=== PATIENT | male | born 1970 | race Caucasian/White ===

== ENCOUNTER 2016-06-25 12:20 | Emergency (ER) | payer MEDICAID ==
[~2016-06-25] VITALS: Ht 167.6 cm; Wt 89.1 kg
[2016-06-25 12:25] VITALS: Ht 167.6 cm; Wt 89.1 kg
[2016-06-25] MEDS ORDERED: LIDOCAINE/MYLANTA 40 ML BTL PO STA (14:13)
[2016-06-25] MEDS ORDERED: BELLADONNA/PHENOBARBITAL TAB PO STA (14:13)
[2016-06-25] MEDS ORDERED: FAMOTIDINE 20 MG INJ IV STA (14:13)
[2016-06-25 14:35] LABS: ADD SCAN DIFF NO
[2016-06-25 14:40] LABS: BASOPHIL # 0.1 10^3/ul (0.0-0.1); BASOPHILS % 0.9 % (0.0-2.0); EOSINOPHILS # 0.1 10^3/ul (0.0-0.5); EOSINOPHILS % 1.5 % (0.0-7.0); HEMATOCRIT 47.3 % (42.0-52.0); HEMOGLOBIN 15.7 g/dl (14.0-18.0); LYMPHOCYTES # 2.1 10^3/ul (0.8-2.9); LYMPHOCYTES % 28.6 % (15.0-51.0); MEAN CORPUSCULAR HEMOGLOBIN 28.9 pg (29.0-33.0); MEAN CORPUSCULAR HGB CONC 33.2 g/dl (32.0-37.0); MEAN CORPUSCULAR VOLUME 87.1 fl (82.0-101.0); MEAN PLATELET VOLUME 10.1 fl (7.4-10.4); MONOCYTE # 0.5 10^3/ul (0.3-0.9); MONOCYTES % 6.5 % (0.0-11.0); NEUTROPHIL # 4.7 10^3/ul (1.6-7.5); NEUTROPHILS % 62.1 % (39.0-77.0); PLATELET COUNT 272 10^3/UL (140-415); RED BLOOD COUNT 5.43 10^6/ul (4.70-6.10); RED CELL DISTRIBUTION WIDTH 13.3 % (11.5-14.5); WHITE BLOOD COUNT 7.5 10^3/ul (4.8-10.8)
--- NOTE | 2016-06-25 14:47 | ERD ---
ER Documentation Chief Complaint Date/Time DATE: 06/25/16 TIME: 14:46 Chief Complaint AP X 3 DAYS HPI This is a 45-year-old male presents to the ER with mid abdominal pain for the last 3 days. Patient states that abdominal pain is intermittent and is severe at times. Patient denies any nausea vomiting or diarrhea. He denies any fevers or chills. Patient states that pain radiates down to his testicles. Patient denies any rectal pain. He denies any urinary area. He denies any penile discharge. Patient tried taking ibuprofen for pain however it did not work. ROS 12 point review of systems was done, all negative except per HPI. Medications Home Meds Active Scripts Dicyclomine Hcl* (Bentyl*) 10 Mg Capsule, 10 MG PO QID for 7 Days, CAP Prov:MIGUEL,ALISA C 06/25/16 Famotidine* (Pepcid*) 20 Mg Tablet, 20 MG PO BID for 5 Days, TAB Prov:MIGUEL,ALISA C 06/25/16 Reported Medications [None] No Conflict Check 02/26/13 Allergies Allergies: Coded Allergies: No Known Drug Allergies (Verified Allergy, Unknown, 06/25/16) PMhx/Soc Medical and Surgical Hx: pt denies Surgical Hx History of Surgery: No Hx Cardiac Disorders: Yes (PALPITATION 10 YEAR AGO) Hx Alcohol Use: No Hx Substance Use: No Hx Tobacco Use: No Smoking Status: Never smoker Physical Exam Vitals Vital Signs Date Time Temp Pulse Resp B/P Pulse Ox O2 Delivery O2 Flow Rate FiO2 06/25/16 12:25 98.1 90 18 164/90 99 Physical Exam GENERAL: The patient is well developed and appropriate for usual state of health , in no apparent distress. HEENT: Atraumatic. CHEST: Clear to auscultation bilaterally. There are no rales, wheezes or rhonchi. HEART: Regular rate and rhythm. No murmurs, clicks, rubs or gallops. ABDOMEN: Soft, nontender and nondistended. Good bowel sounds. No rebound or guarding. No gross peritonitis. No gross organomegaly or masses. No Lemus sign or McBurney point tenderness. BACK: No midline or flank tenderness. : no testicular pain or swelling NEURO: Alert and oriented. Result Diagram: 06/25/16 1420 06/25/16 1420 Results 24 hrs Laboratory Tests Test 06/25/16 14:20 White Blood Count 7.510^3/ul Red Blood Count 5.4310^6/ul Hemoglobin 15.7g/dl Hematocrit 47.3% Mean Corpuscular Volume 87.1fl Mean Corpuscular Hemoglobin 28.9pg Mean Corpuscular Hemoglobin Concent 33.2g/dl Red Cell Distribution Width 13.3% Platelet Count 45927^3/UL Mean Platelet Volume 10.1fl Neutrophils % 62.1% Lymphocytes % 28.6% Monocytes % 6.5% Eosinophils % 1.5% Basophils % 0.9% Nucleated Red Blood Cells % 0.0/100WBC Neutrophils # 4.710^3/ul Lymphocytes # 2.110^3/ul Monocytes # 0.510^3/ul Eosinophils # 0.110^3/ul Basophils # 0.110^3/ul Nucleated Red Blood Cells # 0.010^3/ul Urine Color LT. YELLOW Urine Clarity CLEAR Urine pH 6.0 Urine Specific [place] 1.020 Urine Ketones NEGATIVE Urine Nitrite NEGATIVE Urine Bilirubin NEGATIVE Urine Urobilinogen 0.2 E.U./dL Urine Leukocyte Esterase NEGATIVE Urine Hemoglobin NEGATIVE Urine Glucose NEGATIVE% Urine Total Protein NEGATIVE Sodium Level 141mmol/L Potassium Level 4.0mmol/L Chloride Level 105mmol/L Carbon Dioxide Level 26mmol/L Anion Gap 14 Blood Urea Nitrogen 14mg/dl Creatinine 0.84mg/dl Glucose Level 133mg/dl Calcium Level 9.5mg/dl Total Bilirubin 0.3mg/dl Direct Bilirubin 0.00mg/dl Indirect Bilirubin 0.3mg/dl Aspartate Amino Transf (AST/SGOT) 41IU/L Alanine Aminotransferase (ALT/SGPT) 53IU/L Alkaline Phosphatase 103IU/L Total Protein 8.0g/dl Albumin 4.4g/dl Globulin 3.60g/dl Albumin/Globulin Ratio 1.22 Lipase 76U/L Current Medications Medications (Trade) Dose Ordered Sig/Eric Route PRN Reason Start Time Stop Time Status Last Admin Dose Admin Famotidine (Pepcid Iv) 20 mg ONCE STAT IV 06/25/16 14:13 06/25/16 14:14 DC 06/25/16 14:26 Miscellaneous Medication (Gi Cocktail (2)) 40 ml ONCE STAT PO 06/25/16 14:13 06/25/16 14:14 DC 06/25/16 14:25 Belladonna/ Phenobarbital () 2 tab ONCE STAT PO 06/25/16 14:13 06/25/16 14:14 DC 06/25/16 14:25 Procedures/MDM This is a 45-year-old male presents to the ER with generalized abdominal pain for the last 3 days. Differential diagnosis includes but is not limited to GERD , gastritis, cholelithiasis, obstructive stone, nephrolithiasis, appendicitis, diverticulitis,, intra-abdominal abscess, testicular torsion, epididymitis. At this time etiology of abdominal pain is unknown however there is no evidence of acute abdomen. Patient will be sent home with Bentyl and with famotidine. Patient's abdominal exam is benign. He is afebrile and well-appearing. Patient is to follow-up with her primary care doctor within 1-2 days return to ER sooner if symptoms worsen. Medical decision making was shared with the patient he understands and agrees with plan. Departure Diagnosis: Primary Impression: Abdominal pain Condition: Stable ALISA RIVERA Jun 25, 2016 14:47
[2016-06-25 14:49] LABS: ADD UMIC NO; URINE BILIRUBIN (Dip) NEGATIVE (NEGATIVE); URINE BLOOD (Dip) NEGATIVE (NEGATIVE); URINE COLOR LT. YELLOW (YELLOW); URINE GLUCOSE (Dip) NEGATIVE (NEGATIVE); URINE KETONES (Dip) NEGATIVE (NEGATIVE); URINE LEUKOCYTE ESTERASE (Dip) NEGATIVE (NEGATIVE); URINE NITRITE (Dip) NEGATIVE (NEGATIVE); URINE TOTAL PROTEIN (Dip) NEGATIVE (NEGATIVE); URINE UROBILINOGEN (Dip) 0.2 E.U./dL (0.1-1.0)
[2016-06-25 14:56] LABS: ALBUMIN 4.4 g/dl (3.3-4.9); ALBUMIN/GLOBULIN RATIO 1.22; BILIRUBIN,INDIRECT 0.3 mg/dl (0-1.1); BILIRUBIN,TOTAL 0.3 mg/dl (0.2-1.3); CALCIUM 9.5 mg/dl (8.4-10.2); CREATININE 0.84 mg/dl (0.61-1.24)
--- NOTE | 2016-06-25 15:03 | RADRPT ---
PROCEDURE: Scrotal ultrasound CLINICAL INDICATION: Bilateral testicular pain. TECHNIQUE: Scrotal ultrasound was performed with sagittal and transverse views. Choe scale and co mine imaging was performed. Images were reviewed on high resolution PACS monitors. COMPARISON: None available FINDINGS: The right testicle measures 4.7 x 2.5 x 3.8 cm. The left testicle measures 4.3 x 2.3 x 3.4 cm. There is normal size and echogenicity and morphology bilaterally. There is normal blood flow seen bilaterally. The epididymi are normal. No hydrocele is identified. There is no evidence for varicocele. The soft tissues are unremarkable. No mass or cyst or other abnormality is seen. IMPRESSION: 1. Unremarkable scrotal ultrasound. 2. Symmetrically normal testes and epididymi. RPTAT: [facility] Physician Lucho Date Time Electronically viewed and signed by Physician Lucho on 06/25/2016 15:02 MARIA INES/
--- NOTE | 2016-06-25 15:36 | RADRPT ---
PROCEDURE: CT Abdomen and Pelvis without contrast. CLINICAL INDICATION: Abdominal pain TECHNIQUE: CT of the abdomen and pelvis was performed on a multi-detector scanner without IV contr ast. Coronal and sagittal images were reformatted from the axial data set. One or more of the foll owing dose reduction techniques were used: automated exposure control, adjustment of the mA and/or kV according to patient size, use of iterative reconstruction technique. CTDI = 22.63 mGy. DLP = 14 36.91 mGy-cm. COMPARISON: Ultrasound, 06/25/2016 FINDINGS: CT abdomen: The lung bases are clear. The heart size is normal, without pericardial effusion. Hepatic fatty in filtration is noted, without evidence of focal hepatic mass. Gallbladder, biliary tree, pancreas, s pleen and adrenal glands are unremarkable. Small bilateral nonobstructive renal calculi are noted, without ureterolithiasis or obstructive uropathy. The stomach is grossly unremarkable. The aorta is of normal caliber. There is no retroperitoneal lymphadenopathy. The ovidio hepatis reg ion is clear. CT pelvis: No bowel obstruction, free intraperitoneal air or abscess is identified. There is no diverticulosis , diverticulitis or colitis. The appendix is well visualized and normal. Urinary bladder is grossl y unremarkable. No pelvic mass, free fluid or lymphadenopathy is identified. The surrounding osseous structures are remarkable for degenerative spondylosis of the spine. No ost eolytic or osteoblastic lesion is detected. IMPRESSION: 1. Hepatic steatosis is noted. 2. Small bilateral nonobstructive renal calculi are seen, without ureterolithiasis or obstructive u ropathy. 3. No mass, lymphadenopathy, or focal acute inflammatory process is identified. RPTAT: PP .Efrain Isbell MD, MD Date Time Electronically viewed and signed by .Efrain Isbell MD, MD on 06/25/2016 15:36 .R/
[2016-06-25] MEDS ORDERED: FAMO-18 PO (15:40)
[2016-06-25] MEDS ORDERED: DICY10CA60 PO (15:41)
[2016-06-25 16:05] VITALS: BP 150/80; PULSE 70; RESP 18; TEMP 98.1
== END 2016-06-25 16:00 | disposition home or self-care (01) ==
LOC: FTE 12:20
DX: R10.84 Generalized abdominal pain (principal)
CPT/HCPCS: 36415; 74176; 76870; 80053; 81003; 83690; 85025; 96374; Z7502; Z7610

== ENCOUNTER 2016-07-04 11:05 | Emergency (ER) | payer MEDICAID ==
[~2016-07-04] VITALS: Ht 162.6 cm; Wt 103.5 kg
[~2016-07-04 11:05] MED LIST: DICY10CA60 PO; FAMO-18 PO
[2016-07-04 11:11] VITALS: Ht 162.6 cm; Wt 103.5 kg
[2016-07-04] MEDS ORDERED: morphine 4 MG/ML VIAL IV STA (11:40)
[2016-07-04] MEDS ORDERED: SOD CHLORIDE 0.9% 1,000 ML IV STA (11:40)
[2016-07-04] MEDS ORDERED: ONDANSETRON 4 MG INJ IV STA (11:40)
[2016-07-04 12:06] LABS: ADD SCAN DIFF NO
[2016-07-04 12:12] LABS: BASOPHIL # 0.1 10^3/ul (0.0-0.1); BASOPHILS % 0.7 % (0.0-2.0); EOSINOPHILS # 0.2 10^3/ul (0.0-0.5); EOSINOPHILS % 2.1 % (0.0-7.0); HEMATOCRIT 49.7 % (42.0-52.0); HEMOGLOBIN 16.7 g/dl (14.0-18.0); LYMPHOCYTES # 2.6 10^3/ul (0.8-2.9); LYMPHOCYTES % 32.1 % (15.0-51.0); MEAN CORPUSCULAR HEMOGLOBIN 29.3 pg (29.0-33.0); MEAN CORPUSCULAR HGB CONC 33.6 g/dl (32.0-37.0); MEAN CORPUSCULAR VOLUME 87.2 fl (82.0-101.0); MEAN PLATELET VOLUME 9.9 fl (7.4-10.4); MONOCYTE # 0.6 10^3/ul (0.3-0.9); MONOCYTES % 7.4 % (0.0-11.0); NEUTROPHIL # 4.6 10^3/ul (1.6-7.5); NEUTROPHILS % 57.3 % (39.0-77.0); PLATELET COUNT 250 10^3/UL (140-415); RED CELL DISTRIBUTION WIDTH 13.2 % (11.5-14.5)
[2016-07-04 12:15] LABS: ADD UMIC NO; URINE BILIRUBIN (Dip) NEGATIVE (NEGATIVE); URINE BLOOD (Dip) NEGATIVE (NEGATIVE); URINE COLOR LT. YELLOW (YELLOW); URINE GLUCOSE (Dip) NEGATIVE (NEGATIVE); URINE KETONES (Dip) NEGATIVE (NEGATIVE); URINE LEUKOCYTE ESTERASE (Dip) NEGATIVE (NEGATIVE); URINE NITRITE (Dip) NEGATIVE (NEGATIVE); URINE TOTAL PROTEIN (Dip) NEGATIVE (NEGATIVE); URINE UROBILINOGEN (Dip) 0.2 E.U./dL (0.1-1.0)
[2016-07-04 12:27] LABS: ALBUMIN 4.7 g/dl (3.3-4.9); ALBUMIN/GLOBULIN RATIO 1.3; BILIRUBIN,INDIRECT 0.1 mg/dl (0-1.1); BILIRUBIN,TOTAL 0.1 mg/dl (0.2-1.3); CALCIUM 9.8 mg/dl (8.4-10.2); CREATININE 0.92 mg/dl (0.61-1.24); POTASSIUM 4.5 mmol/L (3.5-5.1); TOTAL PROTEIN 8.3 g/dl (6.1-8.1)
--- NOTE | 2016-07-04 13:54 | RADRPT ---
PROCEDURE: CT Abdomen and Pelvis without contrast. CLINICAL INDICATION: Abdominal pain TECHNIQUE: CT scan of the abdomen and pelvis without contrast was performed on a multi-slice CT sc марина without intravenous contrast. Coronal and sagittal reformatted images were obtained from the axial source images. Images were reviewed on a high-resolution PACS workstation. One or more of the following does reduction techniques were used: Automated exposure control; adjustment of the mA an d/or kV according to patient size; use of the aorta of reconstruction technique. The total exam CTD I equals 22.9 mGy and the total exam DLP equals 1451.5 mGy-cm. COMPARISON: CT abdomen pelvis without contrast 06/25/2016 FINDINGS: The lung bases are clear. Heart size is normal, and there is no evidence of pericardial thickening or effusion. There is diffuse decreased attenuation of the hepatic parenchyma with pericholecystic sparing consis tent with fatty infiltration. The liver is mildly enlarged. The liver, spleen, and pancreas are ot herwise normal given the limitations of a noncontrast CT examination. The gallbladder is normal. The adrenal glands are normal. Small bilateral nonobstructing renal calculi are unchanged in distri bution and number. There is no evidence of hydronephrosis. The aorta is of normal caliber. There is no retroperitoneal lymph node enlargment. There is no evidence of large or small bowel obstruction. A normal appendix is identified.. No fr ee fluid or fluid collections are identified. No inflammatory changes are seen. There is a tiny per iumbilical hernia containing only fat. No enlarged pelvic sidewall lymph nodes are seen. The bladder is within normal limits. No free fl uid is identified. The inguinal regions are unremarkable. The bones are intact. IMPRESSION: 1. Stable CT appearance of the abdomen pelvis compared to 06/25/2016 without evidence of mass, lymp hadenopathy, or inflammatory process in the abdomen or pelvis. 2. Stable small bilateral nonobstructing renal calculi. 3. Fatty infiltration of the liver. RPTAT: KK .Silvano Bynum MD, Date Time Electronically viewed and signed by .Silvano Bynum MD, MD on 07/04/2016 13:53 .Kevin
[2016-07-04] MEDS ORDERED: IBUP800T25 PO (14:01)
[2016-07-04] MEDS ORDERED: HYDR-902 PO (14:01)
--- NOTE | 2016-07-04 14:12 | ERD ---
ER Documentation Chief Complaint Date/Time DATE: 07/04/16 TIME: 14:10 Chief Complaint LOWER ABDOMINAL PAIN,BACK PAIN X 1 WEEK HPI 45-year-old male presents with left flank pain and abdominal pain is intermittent. Admits to nausea but no vomiting. He does have a history of kidney stone that was seen here previously for kidney stones. Denies dysuria hematuria or increased urinary frequency. Pain is 8 out of 10. Has not taken any medication for pain. ROS All systems reviewed and are negative except as per history of present illness. Medications Home Meds Active Scripts Hydrocodone/Acetaminophen ([place] 10-325 Tablet) 1 Each Tablet, 1 TAB PO Q6H Y for PAIN, #20 TAB Prov:KIRILL LEE PA-C 07/04/16 Ibuprofen* (Motrin*) 800 Mg Tab, 800 MG PO Q6, #30 TAB Prov:KIRILL LEE PA-C 07/04/16 Dicyclomine Hcl* (Bentyl*) 10 Mg Capsule, 10 MG PO QID for 7 Days, CAP Prov:ALISA RIVERA 06/25/16 Famotidine* (Pepcid*) 20 Mg Tablet, 20 MG PO BID for 5 Days, TAB Prov:ALISA RIVERA 06/25/16 Reported Medications [None] No Conflict Check 02/26/13 Allergies Allergies: Coded Allergies: No Known Drug Allergies (Verified Allergy, Unknown, 07/04/16) PMhx/Soc History of Surgery: No Anesthesia Reaction: No Hx Neurological Disorder: No Hx Respiratory Disorders: No Hx Cardiac Disorders: No Hx Psychiatric Problems: No Hx Miscellaneous Medical Probl: No Hx Alcohol Use: Yes Hx Substance Use: No Hx Tobacco Use: No Smoking Status: Never smoker FmHx Family History: No diabetes Physical Exam Vitals Vital Signs Date Time Temp Pulse Resp B/P Pulse Ox O2 Delivery O2 Flow Rate FiO2 07/04/16 11:11 98.2 86 18 145/89 98 Physical Exam General: well developed, well nourished, alert, nontoxic, no distress Head: normocephalic, atraumatic Eyes: PERRL, normal conjunctiva Neck: Supple, nontender, no lymphadenopathy, no midline tenderness Respiratory: Clear to auscaultation bilaterally, speaks in full sentences, no use of accesory muscles or labored breathing, no rales, ronchi, or wheezing Cardiovascular: RRR, No murmurs GI: soft, non tender, non distended, negative murphys sign, negative mcburneys point tenderness, mild left cva tenderness, no rebound or guarding Back: no midline tenderness, no step offs or bony abnormalities, sensation to light touch in tact Extremities: moving all extremities normally, normal gait, no edema Result Diagram: 07/04/16 1150 07/04/16 1150 Results 24 hrs Laboratory Tests Test 07/04/16 11:50 White Blood Count 8.010^3/ul Red Blood Count 5.7010^6/ul Hemoglobin 16.7g/dl Hematocrit 49.7% Mean Corpuscular Volume 87.2fl Mean Corpuscular Hemoglobin 29.3pg Mean Corpuscular Hemoglobin Concent 33.6g/dl Red Cell Distribution Width 13.2% Platelet Count 77091^3/UL Mean Platelet Volume 9.9fl Neutrophils % 57.3% Lymphocytes % 32.1% Monocytes % 7.4% Eosinophils % 2.1% Basophils % 0.7% Nucleated Red Blood Cells % 0.0/100WBC Neutrophils # 4.610^3/ul Lymphocytes # 2.610^3/ul Monocytes # 0.610^3/ul Eosinophils # 0.210^3/ul Basophils # 0.110^3/ul Nucleated Red Blood Cells # 0.010^3/ul Urine Color LT. YELLOW Urine Clarity CLEAR Urine pH 6.5 Urine Specific [place] 1.010 Urine Ketones NEGATIVE Urine Nitrite NEGATIVE Urine Bilirubin NEGATIVE Urine Urobilinogen 0.2 E.U./dL Urine Leukocyte Esterase NEGATIVE Urine Hemoglobin NEGATIVE Urine Glucose NEGATIVE% Urine Total Protein NEGATIVE Sodium Level 140mmol/L Potassium Level 4.5mmol/L Chloride Level 103mmol/L Carbon Dioxide Level 29mmol/L Anion Gap 13 Blood Urea Nitrogen 13mg/dl Creatinine 0.92mg/dl Glucose Level 133mg/dl Calcium Level 9.8mg/dl Total Bilirubin 0.1mg/dl Direct Bilirubin 0.00mg/dl Indirect Bilirubin 0.1mg/dl Aspartate Amino Transf (AST/SGOT) 32IU/L Alanine Aminotransferase (ALT/SGPT) 54IU/L Alkaline Phosphatase 108IU/L Total Protein 8.3g/dl Albumin 4.7g/dl Globulin 3.60g/dl Albumin/Globulin Ratio 1.30 Lipase 80U/L Current Medications Medications (Trade) Dose Ordered Sig/Eric Route PRN Reason Start Time Stop Time Status Last Admin Dose Admin Sodium Chloride (NS) 1,000 ml @ 1,000 mls/hr Q1H STAT IV 07/04/16 11:40 07/04/16 12:39 DC 07/04/16 11:53 Morphine Sulfate (morphine) 4 mg ONCE STAT IV 07/04/16 11:40 07/04/16 11:42 DC 07/04/16 11:53 Ondansetron HCl (Zofran Inj) 4 mg ONCE STAT IV 07/04/16 11:40 07/04/16 11:42 DC 07/04/16 11:53 Procedures/MDM Patient's lab work was unremarkable. He had improvement of his symptoms with pain medications. CT showed no acute process. He is discharged with pain medication and instructions to increase fluid intake. Recommended this patient follow up with her primary care doctor within 48 hours or return to the emergency room for any worsening of symptoms. However this time I do believe there is suitable for outpatient management. I answered all their questions and they agreed with the plan and were discharged home. Departure Diagnosis: Primary Impression: Renal colic Condition: Stable Patient Instructions: Kidney Stone W/ Colic Additional Instructions: Call your primary care doctor TOMORROW for an appointment during the next 1-2 days.See the doctor sooner or return here if your condition worsens before your appointment time. KIRILL LEE PA-C Jul 04, 2016 14:12
[2016-07-04 14:34] VITALS: BP 126/83; PULSE 65; RESP 18; TEMP 98.6
== END 2016-07-04 14:35 | disposition home or self-care (01) ==
LOC: FTE 11:05
DX: N23 Unspecified renal colic (principal)
CPT/HCPCS: 36415; 74176; 80053; 81003; 83690; 85025; 96374; 96375; J2270; J2405; J7030; Z7502

== ENCOUNTER 2016-10-03 12:35 | Emergency (ER) | payer MEDICAID ==
[~2016-10-03] VITALS: Ht 175.3 cm; Wt 102.0 kg
[~2016-10-03 12:35] MED LIST changes: -FAMO-18 PO; +FAMO-96 PO; +HYDR-902 PO; +IBUP800T25 PO
[2016-10-03 12:50] VITALS: Ht 175.3 cm; Wt 102.0 kg
--- NOTE | 2016-10-03 13:38 | ERA ---
ER Documentation Chief Complaint Date/Time DATE: 10/03/16 TIME: 13:38 Chief Complaint left buttocks pain x 1 day HPI The patient is a 46-year-old male, presenting to the ER because of left buttock pain for 1 day, denies any trauma, complains of constipation, better with resting, worse with movement. He denies similar symptoms previously, denies fever, neck pain, chest pain, abdominal pain, vomiting. He does not smoke, drinks socially, denies any illicit drug Past medical/surgical history: None ROS All systems reviewed and are negative except as per history of present illness. Medications Home Meds Active Scripts Tramadol HCl (Tramadol HCl) 50 Mg Tablet, 50 MG PO Q6, #20 TAB Prov:VANESSA KELSEY MD 10/03/16 Hydrocodone/Acetaminophen ([place] 10-325 Tablet) 1 Each Tablet, 1 TAB PO Q6H Y for PAIN, #20 TAB Prov:KIRILL LEE PA-C 07/04/16 Ibuprofen* (Motrin*) 800 Mg Tab, 800 MG PO Q6, #30 TAB Prov:KIRILL LEE PA-C 07/04/16 Dicyclomine Hcl* (Bentyl*) 10 Mg Capsule, 10 MG PO QID for 7 Days, CAP Prov:ALISA RIVERA 06/25/16 Famotidine* (Pepcid*) 20 Mg Tablet, 20 MG PO BID for 5 Days, TAB Prov:MIGUELALISA FAN C 06/25/16 Reported Medications [None] No Conflict Check 02/26/13 Allergies Allergies: Coded Allergies: No Known Drug Allergies (Verified Allergy, Unknown, 10/03/16) PMhx/Soc History of Surgery: No Anesthesia Reaction: No Hx Neurological Disorder: No Hx Respiratory Disorders: No Hx Cardiac Disorders: No Hx Psychiatric Problems: No Hx Miscellaneous Medical Probl: No Hx Alcohol Use: Yes Hx Substance Use: No Hx Tobacco Use: No Physical Exam Vitals Vital Signs Date Time Temp Pulse Resp B/P Pulse Ox O2 Delivery O2 Flow Rate FiO2 10/03/16 12:50 99.4 71 19 184/102 99 Physical Exam Const: No acute distress. Head: Atraumatic. Eyes: Normal Conjunctiva. ENT: Normal External Ears, Nose and Mouth. Neck: Full range of motion. No meningismus. Resp: Clear to auscultation bilaterally. Cardio: Regular rate and rhythm. Abd: Soft, non distended, normal bowel sounds, non tender. Skin: No petechiae or rashes. Back: No midline or flank tenderness. Ext: No cyanosis, or edema. Left buttock without any erythema, crepitus, skin lesion, not warm to touch Neur: Awake and alert. No focal deficit Psych: Normal Mood and Affect. Results 24 hrs Current Medications Medications (Trade) Dose Ordered Sig/Eric Route PRN Reason Start Time Stop Time Status Last Admin Dose Admin Tramadol HCl (Ultram) 50 mg ONCE ONCE PO 10/03/16 14:00 10/03/16 14:01 DC 10/03/16 14:09 Procedures/MDM MEDICAL MAKING DECISION: The patient is a 46-year-old male, presenting with acute left buttock pain of unclear etiology. He was treated with Ultram for pain with good response The differential diagnoses considered include but are not limited to necrotizing fasciitis, abscess, cellulitis, sciatica Departure Diagnosis: Primary Impression: Left buttock pain Condition: Good Comments He was discharged with Ultram I discussed the findings with the patient. I advised the patient to follow-up with the primary physician in about 1-2 days, sooner if needed and return if any concern. The patient's blood pressure was elevated (>120/80) but appears stable without evidence of hypertension emergency or urgency. The patient was counseled about the risks of hypertension and urged to pursue outpatient monitoring and therapy within a week with their primary care physician. VANESSA KELSEY MD Oct 03, 2016 13:38
[2016-10-03] MEDS ORDERED: TRAM50TA2 PO (13:58)
[2016-10-03] MEDS ORDERED: traMADol 50 MG TAB PO ONE (14:00)
== END 2016-10-03 14:12 | disposition home or self-care (01) ==
LOC: FTE 12:35
DX: M54.5 Low back pain (principal)
CPT/HCPCS: Z7502; Z7610; 99283

== ENCOUNTER 2017-02-20 06:58 | Emergency (ER) | payer MEDICAID ==
[~2017-02-20] VITALS: Ht 170.2 cm; Wt 80.0 kg
[~2017-02-20 06:58] MED LIST changes: +TRAM50TA2 PO
[2017-02-20 07:00] VITALS: Ht 170.2 cm; Wt 80.0 kg
[2017-02-20] MEDS ORDERED: ACYCLOVIR 800 MG TAB PO ONE (09:00)
[2017-02-20] MEDS ORDERED: BUPIVACAINE 0.25%/EPI (SDV) 30 ML INJ INJ ONE (09:00)
[2017-02-20] MEDS ORDERED: BUPIVACAINE 0.25% (MPF) 10 ML 10 ML VIAL INJ ONE (09:00)
[2017-02-20] MEDS ORDERED: BUPIVACAINE 0.25% (STERILE-PAK) 30 ML INJ INJ ONE (09:30)
[2017-02-20] MEDS ORDERED: IBUP800T25 PO (10:29)
[2017-02-20] MEDS ORDERED: ACYC800T57 PO (10:29)
--- NOTE | 2017-02-20 16:43 | ERD ---
ER Documentation Chief Complaint Chief Complaint back pain rad to right leg x 2 days HPI 46-year-old male complaining of right buttock pain that radiates to his right leg 2 days. Denies falls, injury, nor heavy lifting. Denies saddle paresthesia. Denies bowel or bladder dysfunction. Patient also complaining of a rash on his the left side of his chest, and along his arm. The rash has been present for 5 days, is burning and painful. Denies fever or chills. ROS All systems reviewed and are negative except as per history of present illness. Medications Home Meds Active Scripts Acyclovir* (Zovirax*) 800 Mg Tablet, 800 MG PO 5 TIMES DAILY for 7 Days, TAB Prov:COLLIN MORALES. TRANSPLANT IMMUNOLOGIST 02/20/17 Ibuprofen* (Motrin*) 800 Mg Tab, 800 MG PO Q6H Y for PAIN AND OR ELEVATED TEMP, #30 TAB Prov:COLLIN MORALES. TRANSPLANT IMMUNOLOGIST 02/20/17 Tramadol HCl (Tramadol HCl) 50 Mg Tablet, 50 MG PO Q6, #20 TAB Prov:VANESSA KELSEY MD 10/03/16 Hydrocodone/Acetaminophen ([place] 10-325 Tablet) 1 Each Tablet, 1 TAB PO Q6H Y for PAIN, #20 TAB Prov:KIRILL LEE PA-C 07/04/16 Ibuprofen* (Motrin*) 800 Mg Tab, 800 MG PO Q6, #30 TAB Prov:KIRILL LEE PA-C 07/04/16 Dicyclomine Hcl* (Bentyl*) 10 Mg Capsule, 10 MG PO QID for 7 Days, CAP Prov:ALISA RIVERA 06/25/16 Famotidine* (Pepcid*) 20 Mg Tablet, 20 MG PO BID for 5 Days, TAB Prov:ALISA RIVERA 06/25/16 Reported Medications [None] No Conflict Check 02/26/13 Allergies Allergies: Coded Allergies: No Known Drug Allergies (Verified Allergy, Unknown, 02/20/17) PMhx/Soc Medical and Surgical Hx: pt denies Medical Hx, pt denies Surgical Hx History of Surgery: No Anesthesia Reaction: No Hx Neurological Disorder: No Hx Respiratory Disorders: No Hx Cardiac Disorders: No Hx Psychiatric Problems: No Hx Miscellaneous Medical Probl: No Hx Alcohol Use: Yes Hx Substance Use: No Hx Tobacco Use: No Smoking Status: Never smoker Physical Exam Vitals Vital Signs Date Time Temp Pulse Resp B/P Pulse Ox O2 Delivery O2 Flow Rate FiO2 02/20/17 07:00 98.2 59 18 153/94 99 Physical Exam General: Well-developed, well-nourished, conscious and coherent, in no distress Skin: Warm and dry, good texture and turgor. Large patch of vesicular lesion on the erythematous base is noted on the left side of the chest and back , with a line of similar lesions along the ventral aspect of the left arm. The lesions are distributed along T1 dermatome. Head: Normocephalic without evidence of trauma Chest: Normal AP diameter. Good expansion without retractions. Nontender. Lungs are clear to auscultate bilaterally with good tidal volume Heart: Regular rate and rhythm. No murmur, rub, or gallops heard Abdomen: Soft and nontender without masses, guarding, or rebound. Bowel sounds are active. No hepatosplenomegaly Back: Without spinal or CVA tenderness. Muscle spasm and tenderness noted in the right buttock. Extremities: Full range of motion. Good strength bilaterally. No clubbing, cyanosis, or edema. Peripheral pulses are intact. Sensation intact Neuro: Alert and oriented 4, GCS 15. Cranial nerves grossly intact. Motor and sensory exams nonfocal. Moves all extremities. Speech clear. Gait normal Results 24 hrs Current Medications Medications (Trade) Dose Ordered Sig/Eric Route PRN Reason Start Time Stop Time Status Last Admin Dose Admin Bupivacaine HCl (Marcaine 0.25% (Mpf) 10 ml) 10 ml ONCE ONCE INJ 02/20/17 09:00 02/20/17 09:01 Cancel Acyclovir (Zovirax) 800 mg ONCE ONCE PO 02/20/17 09:00 02/20/17 09:01 DC 02/20/17 09:23 Bupivacaine HCl/ Epinephrine Bitart (Marcaine 0.25%/ Epi (Sdv) 30 ml) 10 ml ONCE ONCE INJ 02/20/17 09:00 02/20/17 09:01 Cancel Bupivacaine HCl (Marcaine 0.25% (Sterile-David)) 10 ml ONCE ONCE INJ 02/20/17 09:30 02/20/17 09:31 DC Procedures/MDM Procedure note: Trigger point injection Trigger point injection performed by me. 10 mL of bupivacaine is injected into right gluteal region. Total number muscle groups injected: 1. Patient reports improvement of pain after the trigger point injection. Patient does not have any midline spinal tenderness. I doubt spinal fracture, subluxation, or disc herniation. I doubt spinal epidural abscess, cauda equina syndrome. Patient appears to have piriformis syndrome. Patient also presents with what appears to be herpes zoster lesion on the left T1 dermatome. Acyclovir 800 mg p.o. given to the patient in the ED. Patient appears well, stable for discharge and outpatient management. Medical decision making shared with patient and family. Education provided to patient and family. Patient and family expressed understanding of the plan. Medications on discharge: Acyclovir, ibuprofen. Follow-up: Primary care provider in 2-3 days or return to ED if worse. Disclaimer: Inadvertent spelling and grammatical errors are likely due to EHR/ dictation software use and do not reflect on the overall quality of patient care. Also, please note that the electronic time recorded on this note does not necessarily reflect the actual time of the patient encounter. Departure Diagnosis: Primary Impression: Pyriformis syndrome Laterality: right Qualified Code: G57.01 - Piriformis syndrome of right side Additional Impression: Herpes zoster Herpes zoster complications: without complications Qualified Code: B02.9 - Herpes zoster without complication Condition: Stable Patient Instructions: Shingles (Herpes Zoster), Back Spasm, No Trauma Referrals: [facility] () Usted se burciaga hecho un examen mdico de control que le indica que no est en wilfrid condicin que requiera tratamiento urgente en el Departamento de Emergencia. Un estudio ms profundo y el tratamiento de valiente condicin pueden esperar sin ningn riesgo hasta que usted sea atendida/o en el consultorio de valiente mdico o wilfrid cl tad. Es responsabilidad suya arreglar wilfrid sammy para el seguimiento del herve. MANEJO DE CONDICIONES NO URGENTES EN EL FUTURO 1) Si usted tiene un mdico de atencin primaria: Usted debera llamar a valiente mdico de atencin primaria antes de venir al departamento de emergencia. Despus de las horas de consultorio, valiente doctor o valiente asociado/a est disponible por telfono. El mdico o enfermero de kaci en el servicio telefnico puede asesorarle por fitz medio para atender el problema, o herve contrario se puede programar wilfrid sammy. 2) Si usted no tiene un mdico de atencin primaria: Llame al mdico o clnica de referencia que aparece abajo ignacio las horas de consultorio para hacer wilfrid sammy para que le vean. CLINICAS: [facility] [phone] [address] [facility] [facility] [phone] [address] [facility] [facility] [phone] [address] [facility]. [place] [address] [phone] [facility] [place] [id number] [phone] [facility]. [phone] [address] Additional Instructions: Llame al doctor MAANA y soham wilfrid SAMMY PARA DENTRO DE 2-3 MARTINEZ.Dgale a la secretaria que nosotros le instruimos hacer esta sammy.Avise o llame si valiente condicin se empeora antes de la sammy. Regresa aqui si peor o no mejor. COLLIN MORALES NP Feb 20, 2017 16:43
== END 2017-02-20 11:02 | disposition home or self-care (01) ==
LOC: FTE 06:58
DX: G57.01 Lesion of sciatic nerve, right lower limb (principal); B02.9 Zoster without complications
CPT/HCPCS: 20552; Z7502; Z7610

== ENCOUNTER 2017-03-21 10:29 | Emergency (ER) | END 2017-03-21 13:19 | disposition home or self-care (01) ==